=== PATIENT | female | born 1980 | race Caucasian/White ===

== ENCOUNTER 2019-07-14 07:58 | Emergency (ER) | payer SELFPAY ==
[2019-07-14 08:21] LABS: #Basophils 0.1 thou/uL (0.0-0.2); #Eosinphils 0.2 thou/uL (0.0-0.7); #Lymphocytes 3.3 thou/uL (1.20-3.40); #Monocytes 0.5 thou/uL (0.11-0.59); #Neutrophils 5.4 thou/uL (1.40-6.50); %Basophils 0.6 % (0.0-1.0); %Eosinophils 2.5 % (0.0-10.0); %Lymphocytes 34.6 % (21.0-51.0); %Monocytes 5.1 % (0.0-10.0); %Neutrophils 57.2 % (42.0-75.0); Mean Corpuscular HGB CONC 34.5 g/dL (32.0-36.0); Mean Corpuscular Hemoglobin 32.8 pg (27.0-31.0); Mean Corpuscular Volume 95.1 fL (78.0-98.0); Mean Platelet Volume 7.6 fL (7.4-10.4); Platelet Count 216 thou/uL (130-400); RBC Distribution Width 11.8 % (11.5-14.5); Red Blood Cell (RBC) Count 3.98 mill/uL (4.20-5.40); White Blood Cell (WBC) Count 9.4 thou/uL (4.8-10.8)
[2019-07-14 08:44] LABS: ALT (SGPT) 92 U/L (8-55); AST (SGOT) 51 U/L (5-34); Albumin 3.6 g/dL (3.5-5.0); Alkaline Phosphatase 80 U/L (40-150); Anion Gap 7 mmol/L (10-20); BUN (Urea Nitrogen) 12 mg/dL (7.0-18.7); Bilirubin, Total 0.2 mg/dL (0.2-1.2); Calc. Creatinine Clearance 0 mL/min (70-130); Calcium 8.9 mg/dL (7.8-10.44); Carbon Dioxide 29 mmol/L (22-29); Chloride 104 mmol/L (98-107); Estimated GFR-MDRD 87; Globulin 3.4 g/dL (2.4-3.5); Glucose 188 mg/dL (70-105); Lipase 36 U/L (8-78); Potassium 4.3 mmol/L (3.5-5.1); Sodium 136 mmol/L (136-145)
--- NOTE | 2019-07-14 10:02 | ULT ---
ULTRASOUND ABDOMEN LIMITED: (RIGHT UPPER QUADRANT) DATE: 07/14/2019 HISTORY: 39-year-old female with right upper quadrant abdominal pain. FINDINGS: Gallbladder:The near field is diffusely hyperechoic, producing strong acoustic shadowing that obscure s the entire lumen. No pericholecystic fluid. Gallbladder wall difficult to identify. Common duct: 6 mm. Liver:Echogenicity within normal limits. Pancreas:Difficult to identify. Right kidney:No hydronephrosis. 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 The former i s favored. CT of abdomen with be able to distinguish the 2 possibilities. (Both Noncontrast CT or IV contrast enhanced CT would be able to make the distinction. However, for a cute abdominal pain in general, contrast enhanced CT is recommended for better sensitivity in the detection of other pathologies, and therefore contrast enhanced CT is recommended, unless there is a contraindication to IV contrast).
[2019-07-14] MEDS ORDERED: ISOVUE-370 76%-LOCM 1 ML ONE (10:26)
[2019-07-14] MEDS ORDERED: Ketorolac Tromethamine 30 MG/ML VIAL ONE (10:27)
[2019-07-14] MEDS ORDERED: Ondansetron PF 4 MG/2 ML Vial ONE (10:27)
[2019-07-14 11:10] LABS: Bilirubin Negative (Negative); Blood, Urine Negative (Negative); Clarity Clear (Clear); Glucose, Urine (Dipstick) 100 mg/dL (Negative); Leukocyte Negative Leu/uL (Negative); Nitrite Negative (Negative); Protein, Urine (Dipstick) Negative (Neg-Trace); Urobilinogen Normal mg/dL (Less than 2)
[2019-07-14 11:12] LABS: Pregnancy Test - Urine (BHCG) Negative (Negative); Pregu Control Background? CLEAR/WHITE (CLR/WHITE); Pregu Control Bar Appear? YES (CONTROL BAR); Specific Gravity 1.026 (1.002-1.036)
--- NOTE | 2019-07-14 12:11 | CT ---
CT ABDOMEN AND PELVIS WITH IV CONTRAST: Date: 07/14/19 HISTORY: Abdominal pain. FINDINGS: Multiple calcified gallstones are present. The lung bases are clear. No evidence of free air, free fl uid, or lymphadenopathy seen in the abdomen or pelvis. The liver, spleen, pancreas, adrenal glands, and kidneys are normal. There are vascular calcifications without evidence of aneurysmal dilatation of the abdominal aorta. T here are postop changes in the right lower quadrant. There is fecal material in the colon. There are degenerative changes in the spine. IMPRESSION: Cholelithiasis. POS: [facility]
== END 2019-07-14 12:45 | disposition short-term general hospital (02) ==
LOC: ERS 07:58
DX: K80.20 Calculus of gallbladder without cholecystitis without obstruction (principal); E11.9 Type 2 diabetes mellitus without complications; I10 Essential (primary) hypertension; F41.9 Anxiety disorder, unspecified; F32.9 Major depressive disorder, single episode, unspecified; F43.10 Post-traumatic stress disorder, unspecified; F17.200 Nicotine dependence, unspecified, uncomplicated
CPT/HCPCS: 36415; 74177; 76705; 80053; 81003; 81025; 83690; 85025; 96374; 96375; J1885; J2405; Q9966

== ENCOUNTER 2019-07-26 12:35 | Day surgery (SDC) | payer MEDICARE ==
[2019-07-25 16:01] VITALS: BMI 44.4
--- NOTE | 2019-07-26 07:14 | HP ---
HISTORY OF PRESENT ILLNESS: Tennille Leal is a 39-year-old female, living at the long term, been turned down for [facility], presents with symptomatic gallstones. She presented to the emergency room. CAT scan on 07/14/2019 revealed multiple gallstones, constipation. Ultrasound, multiple gallstones, 6 mm bile duct. Liver function tests are normal. CBC is normal. PAST SURGICAL HISTORY: Appendectomy, laparoscopic. ALLERGIES: CLINDAMYCIN, ZOLOFT. MEDICATIONS: None except for Nexium. PAST MEDICAL HISTORY: Anxiety, depression, diabetes, hypertension, and cholesterol. SOCIAL HISTORY: Tobacco, one-half pack per day. Alcohol, none. PHYSICAL EXAMINATION: VITAL SIGNS: Weight 284 pounds, height 57 inches, and BMI 44. Blood pressure 132/71, pulse 91, and temperature 95.9 degrees. HEAD, EARS, EYES, NOSE, AND THROAT: Unremarkable. LUNGS: Clear to auscultation. CARDIAC: Regular rate and rhythm without murmur or gallop. ABDOMEN: Soft, obese. Tenderness in right upper quadrant with guarding. EXTREMITIES: Unremarkable. ASSESSMENT AND PLAN: Symptomatic cholecystitis, cholelithiasis, acute on chronic cholecystitis. Recommend laparoscopic video cholecystectomy. Risks of infection, bleeding, and reoperation discussed. The patient understands the risks and benefits, consents. Job ID: [id number]
[2019-07-26] MEDS ORDERED: Ketorolac Tromethamine 30 MG/ML VIAL ONE (14:09)
[2019-07-26] MEDS ORDERED: Levofloxacin 500 mg/D5W 100 ml Premix Bag ONE (14:09)
[2019-07-26 14:21] LABS: PTT 26.8 SEC (22.9-36.1); Prothrombin Time 13.2 SEC (12.0-14.7)
[2019-07-26] MEDS ORDERED: Midazolam HCl 2 mg/2 ml Vial ONE (14:56)
[2019-07-26] MEDS ORDERED: Fentanyl 100 MCG/2 ML VIAL ONE ×3 (15:29→17:21)
[2019-07-26] MEDS ORDERED: Bupivacaine HCl 0.5%/Epinephrine 1:200,000/PF 30 ml Vial ONE (15:46)
[2019-07-26] MEDS ORDERED: Promethazine HCl 25 MG/ML VIAL ONE (17:15)
[2019-07-26] MEDS ORDERED: Meperidine HCl/PF 25 MG/ML VIAL ONE (17:35)
--- NOTE | 2019-07-26 21:07 | OP ---
DATE OF PROCEDURE: 07/26/2019 PREOPERATIVE DIAGNOSES: Chronic cholecystitis and cholelithiasis. POSTOPERATIVE DIAGNOSES: Chronic cholecystitis and cholelithiasis. PROCEDURE PERFORMED: Laparoscopic video cholecystectomy. ANESTHESIA: General and local 0.5% Marcaine with epinephrine, 30 mL. DESCRIPTION OF PROCEDURE: The patient was taken to the operating room where under general anesthesia, in the supine position, abdomen was prepared with ChloraPrep and draped in routine fashion. Local anesthetic was infiltrated in the skin and subcutaneous tissue about all port sites. The patient was morbidly obese. A supraumbilical incision made. Pneumoperitoneum to 15 mmHg was obtained with a Veress needle, replaced with a 5 port and laparoscope inserted. Liver appeared to be normal. Right sided subxiphoid incision made. 11 port placed, right subcostal incision was made at midclavicular anterior axillary line and the 5 port was placed. The fundus of the gallbladder was grasped at the cephalad and infundibulum grasped and reflected laterally. Cystic artery and duct dissected free. Critical view obtained. Cystic artery and duct double clipped proximally and divided. Gallbladder dissected free from liver bed obtaining good hemostasis prior to division of the final peritoneal attachments. Gallbladder and contents removed with multiple stones and good hemostasis ensured with cautery. All instruments were removed and pneumoperitoneum and irrigant evacuated and all incisions approximated with subdermal 4-0 Monocryl and [place] glue applied. Job ID: [id number]
== END 2019-07-26 18:30 | disposition home or self-care (01) ==
LOC: SDC 12:35
PROVIDERS: ATTEND Specialist
PROC: 0FT44ZZ Resection of Gallbladder, Percutaneous Endoscopic Approach (ICD-10-PCS; principal; 2019-07-26)
DX: K80.12 Calculus of gallbladder with acute and chronic cholecystitis without obstruction (principal); F41.9 Anxiety disorder, unspecified; F32.9 Major depressive disorder, single episode, unspecified; E11.9 Type 2 diabetes mellitus without complications; I10 Essential (primary) hypertension; F17.210 Nicotine dependence, cigarettes, uncomplicated; E66.01 Morbid (severe) obesity due to excess calories; Z68.41 Body mass index [BMI] 40.0-44.9, adult; Z79.84 Long term (current) use of oral hypoglycemic drugs; Z79.899 Other long term (current) drug therapy; Z88.1 Allergy status to other antibiotic agents; Z88.8 Allergy status to other drugs, medicaments and biological substances
CPT/HCPCS: 85610; 85730; 88304; 93005; 93010; J0131; J0670; J1885; J1956; J2175; J2250; J2550; J3010